=== PATIENT | male | born 1960 ===

== ENCOUNTER 2025-05-09 15:11 | Inpatient (IN) | payer OTHER, SELFPAY ==
[2025-05-09] VITALS (17 sets, daily range): BP systolic 87–112; BP diastolic 54–79; BMI 22.7
[2025-05-09 10:14] LABS: Hematocrit 24.0 % (39.0-52.0); Hemoglobin 8.0 g/dL (13.0-18.0); Mean Corp Hgb Conc. 33.3 g/dL (33.0-37.0); Mean Corpuscular Volume 108.1 fL (80.0-94.0); Nucleated Red Blood Cells % 0 % (-); Red Cell Dist. Width 17.2 % (11.5-14.5)
[2025-05-09 10:18] LABS: ALT (SGPT) 21 U/L (0-50); AST (SGOT) 31 U/L (17-59); Albumin 3.7 g/dl (3.5-5.0); Alkaline Phosphatase 46 U/L (38-126); Blood Urea Nitrogen 22 mg/dl (9-20); Calcium 8.5 mg/dl (8.4-10.2); Carbon Dioxide 28 mmol/L (22-30); Chloride 106 mmol/L (98-107); Estimated Creatinine Clearance 68 ml/min; Glucose 142 mg/dl (70-99); Magnesium 2.0 mg/dl (1.6-2.3); Potassium 3.8 mmol/L (3.5-5.1); Sodium 137 mmol/L (135-145); Total Protein 6.1 g/dl (6.3-8.2); eGFR > 60.00
[2025-05-09 10:45] LABS: Platelet Count 20 10^3/uL (130-400)
[2025-05-09] MEDS: NSS 1000 IV (10:46)
[2025-05-09 11:19] LABS: COVID-19 Antigen Negative (Negative)
[2025-05-09] MEDS: VANCOCIN 530 MG IV (11:19)
[2025-05-09] MEDS: MAXIPIME 2000 MG IV ×2 (11:20→20:01)
--- NOTE | 2025-05-09 11:22 | ED.GENMED ---
History of Present Illness
General
Chief Complaint: Fainting/Passed Out
Time Seen by Provider: 05/09/25 09:58
History of Present Illness
History of Present Illness:
64-year-old male with history of lymphoma presenting to the emergency department for weakness and fever at home. Patient reports for the past 2 days has been having fevers at home. Does note that he has been having a lingering cough for several
months, had previously been on antibiotics. Denies chest pain, abdominal pain, any urinary complaints or any known sick contacts. Reports he got a PET scan 2 days ago, recently finished all treatments, status post bone marrow transplant 2 months
ago. He follows at [facility] [place] with Dr. Castro. Prior to arrival, notes that he got very fatigued, sweating and diaphoretic. Notes temperature this morning, took Tylenol at 4:30 in the morning. Denies additional acute medical complaints
Phy Exam
Physical Exam
Physical Exam:
General: Pale, no clinical signs of dehydration, nontoxic and in no acute distress
HEENT: protecting airway
Neck: appears supple
CV: Normal heart rate, regular rhythm
Resp: No accessory muscle use, no increased work of breathing, lungs clear to auscultation bilaterally
Abd: Soft and non-distended, no tenderness to palpation
Extremities: No deformities, no swelling
Neuro: alert, no focal neurologic deficit
: deferred
Rectal: deferred
Psych: Normal affect
Skin: Intact
Course
Orders/Labs/Results
Orders:
Orders
05/09/25 09:36
Electrocardiogram (*1) Urgent
Reason for Study: Vertigo / Dizzy
CR Chest - 2 Views Urgent
Comment:
Reason For Exam: shortness of breath
05/09/25 09:37
EKG- Treatment ONCE
05/09/25 09:45
Complete Blood Count/With Diff Urgent
Comprehensive Metabolic Panel Urgent
Magnesium Urgent
Pro-BNP [NT-proBNP] Urgent
Procalcitonin Urgent
Comment: ADD ON
05/09/25 10:18
0.9% Sodium Chloride 1000 ml [Nss] 1,000 ml IV BOLUS
05/09/25 10:46
COVID-19 Antigen Urgent
Source: Nasal Swab
Lactic Acid Q4H
Comment: CANCEL 2nd LACTIC ACID IF 1st LACTIC ACID IS LESS THAN 2
Blood Culture Q30M
FATOUMATA Source: Blood/Venous
Specimen Description:
Influenza A+B Rapid Molecular Urgent
FATOUMATA Source: Nasal Swab
Specimen Description:
05/09/25 10:49
Add On- LAB Urgent
Tests Added?: procalcitonin
Cefepime HCl [Maxipime] 2,000 mg IV NOW STA
05/09/25 11:06
Vancomycin [Vancocin] 1,500 mg 0.9% Sodium Chloride 500 ml [Nss] 500 ml IV NOW
05/09/25 11:21
Add On- LAB Urgent
Tests Added?: RSV
Blood Culture Q30M
FATOUMATA Source: Blood/Venous
Specimen Description:
Abnormal Lab Results
05/09/25
09:45
WBC 4.1 L 10^3/uL
(4.8-10.8)
RBC 2.22 L 10^6/uL
(4.70-6.10)
Hgb 8.0 L g/dL
(13.0-18.0)
Hct 24.0 L %
(39.0-52.0)
MCV 108.1 H fL
(80.0-94.0)
MCH 36.0 H pg
(27.0-31.0)
RDW 17.2 H %
(11.5-14.5)
Plt Count 20 L* 10^3/uL
(130-400)
Absolute Lymphs (auto) 0.5 L 10^3/uL
(1.2-3.4)
Absolute Monos (auto) 0.7 H 10^3/uL
(0.1-0.6)
Lymphocytes % 12.3 L %
(20.5-51.1)
Monocytes % 17.8 H %
(1.7-9.3)
BUN 22 H mg/dl
(9-20)
Glucose 142 H mg/dl
(70-99)
Total Protein 6.1 L g/dl
(6.3-8.2)
05/09/25 09:45
05/09/25 09:45
Vital Signs
Initial and Last Documented VS:
Initial Vital Signs
Pulse Resp BP
91 19 87/54
05/09/25 09:36 05/09/25 09:36 05/09/25 09:36
Last Documented Vital Signs
Temp Pulse Resp BP Pulse Ox
98.9 F 89 16 93/63 100
05/09/25 10:54 05/09/25 10:54 05/09/25 10:54 05/09/25 10:54 05/09/25 11:23
MDM/Problems Addressed
MDM/Problems Addressed:
64-year-old male with history of lymphoma status post bone marrow transplant 2 months ago presenting to the emergency department for fever and near syncope. Vital signs on arrival significant for low blood pressure.
On exam, patient is resting comfortably, no acute distress, nontoxic. He is pale in appearance, however awake and alert. In the setting of fever at home, immunocompromise state and low blood pressure, concern for systemic infection. Patient does
have an active cough with respiratory being suspected source of infection. also notes history of transfusions, may have low blood counts contributing to symptoms. Will check CBC, chemistry panel, lactate, cultures. Will also obtain COVID and
flu
11:00 - Patient's family had contacted their oncologist, Dr. Castro. In discussion with oncologist at [place], would prefer the patient be transferred to the bone marrow transplant for at [facility]. Will initiate transfer.
11:35 - Chest x-ray shows left lower lobe pneumonia. Starting broad-spectrum antibiotics and IV fluids. Did discuss with Dr. Smith, accepting physician. Patient accepted for transfer. Remains hemodynamically stable. Pending bed assignment
*Pulse Oximetry
SaO2: 100
Oxygen Mode of Delivery: Room air
Patient hypoxic: no
*Critical Care Note
Total Time (30-74mins, 75-104mins- exclusive of procedures): Not Applicable
ED Attending Note
-
Portions of this chart may have been created with voice recognition software.� Occasional wrong word or��sound alike� substitutions may have occurred due to the inherent limitations of voice recognition software.
Discharge Plan
Departure
Prescriptions:
No Action
levothyroxine 150 mcg Tablet
150 mcg PO DAILY
loperamide 2 mg Tablet
2 mg PO BIDPRN PRN (Reason: dairrhea)
acetaminophen [Tylenol Extra Strength] 500 mg Tablet
1,000 mg PO Q6HPRN PRN (Reason: mild pain)
acyclovir 800 mg Tablet
800 mg PO BID
Referrals:
Arjun Núñez DO [Family Provider, Family Practice]
Interventions
Interventions:
*Risk Screen - Suicide Last Done: 05/09/25 10:04
*General Assessment Last Done: 05/09/25 10:04
*Neglect/Abuse Screening Last Done: 05/09/25 10:04
*ED- Fall Risk Assessment Last Done: 05/09/25 10:04
*ED COVID-19 Vaccine History Last Done: 05/09/25 10:04
ED- Cardiac Assessment Last Done: 05/09/25 10:04
ED- Neurological Assessment Last Done: 05/09/25 10:04
Discharge Date and Time
Print Language: YI
--- NOTE | 2025-05-09 13:57 | W.PN.UPDATE ---
Addendum entered and electronically signed by Herminio Baer MD 05/09/25 22:35:
Patient is TF to [facility] this evening
Dictated� DC summary # [id number]
Original Note:
Update Note
Progress Note Update
HPI
61F Immunocompromised host, HX lymphoma s/p bone marrow tx 2 months ago at [facility], chr Leucopenia, thrombocytopenia seen at ER:
- fever at home with Low BP here
VS
05/09/25
10:04 05/09/25
10:04
Temp 98.5 F
Pulse 86
Resp Rate 21
Blood pressure 88/58 88/58
SaO2 96
Oxygen Mode of Delivery Room air
PE
Gen: looks tired, conversant and appropriate
HEENT: symmetric face expression
Lungs: no acute Resp distress, no labored breathing
ENGINE RESEARCH ENGINEER:awake and alert symmetric movements of all extremities , nl speech and vol
Psych: Interactive and appropriate
Labs
05/09/25 05/09/25
09:45 10:46
WBC 4.1 L
Hgb 8.0 L
Plt Count 20 L*
BUN 22 H
Creatinine 1.0
eGFR > 60.00
New-I-Lsrlnisgazt Pept 296
SARS-CoV-2 Antigen Negative
ASSESSMENT & PLAN
Immunocompromised host with HX lymphoma s/p BMT 2 months ago at [facility]
LLL PNA
Fever at home with Hypotension - but has improved.
HX chronic pancytopenia Leucopenia, thrombocytopenia
- BCx sent
- agree with IV vancomycin and CFP
- LR IVF septic fluid bolus
- Trend CBC
HX chronic pancytopenia Leucopenia, severe thrombocytopenia
- trend CBC
- T & S, Blood consent
HX lymphoma s/p bone marrow tx 2 months ago at [facility]
P oncologist says baseline.
- cont ASSISTANT WAREHOUSE MANAGER Acyclovir
- Oncologist Dr. Castro @ [facility] , accepted by Dr. Smith
He is accepted to the BMT floor @ [facility] but no present bed available and unclear when it will be.
DVT Px: SCD
Full code
IMU
--- NOTE | 2025-05-09 14:11 | HPS.HSE ---
Family Physician
-
Family Physician: Arjun Núñez
Chief Complaint
-
Weakness, fever x 2 days
History of Present Illness
64-year-old male with history of lymphoma being treated at [facility] by . He reports fever of 2 days at home with weakness and a cough for several months. He has been on previous antibiotics. He is status post bone marrow
transplant 2 months ago had recent PET scan 2 days ago. He reports a temperature this morning at 4:30 AM 101.1F for which he took Tylenol. He denies headache, sore throat, rash, chest pain, palpitations, abdominal pain, nausea, vomiting, diarrhea,
urinary symptoms. He has past medical history of lymphoma status post bone marrow transplant 2 months ago, history of lymphoma in 2001 status post chemo only at [place], hypothyroidism.
Medical History
Past Medical History
Past Medical History: Reports Other
Additional Past Medical History:
lymphoma status post bone marrow transplant 2 months ago
history of lymphoma in 2001 status post chemo only at [place]
hypothyroidism.
Past Surgical History: Reports Other (Tonsillectomy as child)
Social History
Tobacco: Non-smoker
Alcohol: None
Drug: None
Personal:
Living: With Family ()
Employment: Retired
Family History
Family History: Other (Mother pancreatic cancer 93, father pancreatic cancer age 70 thought to be due to [place], sister thyroid cancer)
Allergies / Home Medications
Allergies reflects when Allergies were last updated in [address].
Home Medications with original date entered in [address]
Allergy/Medication List:
Allergies
Allergy/AdvReac Type Severity Reaction Status Date / Time
No Known Allergies Allergy Unverified 05/09/25 09:36
Home Medications
acetaminophen 500 mg tablet (Tylenol Extra Strength) 1,000 mg PO Q6HPRN PRN mild pain 05/09/25
acyclovir 800 mg tablet 800 mg PO BID 05/09/25
levothyroxine 150 mcg tablet 150 mcg PO DAILY 05/09/25
loperamide 2 mg tablet 2 mg PO BIDPRN PRN dairrhea 05/09/25
Review of Systems
-
History Source: Patient and Family ( at bedside)
A 12 point ROS was completed and negative except as noted: Yes
Constitutional: Reports Fever and Fatigue; Denies Chills
EENT: Denies Sore Throat or Runny Nose
Respiratory: Denies Cough or Trouble Breathing
Cardiac: Denies Chest Pain, Diaphoresis, Palpitations or Syncope
Abdomen/GI: Denies Abdominal Pain, Nausea, Vomiting, Diarrhea, Constipated, Bloody Stools or Black Stools
: Denies Dysuria, Frequency, Flank Pain, Incontinence, Difficulty Voiding, Urgency or Bleeding
Musculoskeletal: Denies Joint Pain or Edema
Skin: Denies Itching or Rash
Neurological: Reports Weakness (Generalized); Denies Dizzy or Headache
Endocrine: Reports No Symptoms
Hematologic/Lymphatic: Reports No Symptoms
Psych: Reports Calm
Physical Exam
Vital Signs
Vital Signs
Temp Pulse Resp BP Pulse Ox
98.9 F 89 16 93/63 100
05/09/25 10:54 05/09/25 10:54 05/09/25 10:54 05/09/25 10:54 05/09/25 11:23
Physical Exam
General: Comfortable, Conversant and Other (Fatigue); No Pain, Fever or Chills
HEENT: NormoCephalic, Anicteric, Moist mucous membranes, PERRLA, No Ptosis and Other (Pale conjunctiva)
Respiratory: Clear; No Wheezes, Rales or Rhonchi
Cardiac: S1/S2 and Regular Rhythm; No Murmur, Rub, Gallop or Peripheral Edema
Breast: Deferred by me
GI: Soft, Non Tender, Non Distended, Normal Bowel Sounds and No Hepatosplenomegaly
Rectal: Deferred by Provider
Genito-urinary: Deferred by me
Musculoskeletal: No Clubbing, No Cyanosis and No Edema
Skin: Warm and Dry; No Rash
Neuro: AO x 3, No Motor Deficits, Nonfocal/grossly intact, Cranial Nerves Intact and No Sensory Deficits; No Slurred Speech, Facial Droop, Tremors or Sedated
Psych: Calm
Laboratory Results
-
05/09/25 09:45
05/09/25 09:45
Laboratory Results
Lactic Acid Cancelled 05/09/25 14:30
Total Bilirubin 1.1 mg/dl (0.2-1.3) 05/09/25 09:45
AST 31 U/L (17-59) 05/09/25 09:45
ALT 21 U/L (0-50) 05/09/25 09:45
Alkaline Phosphatase 46 U/L (38-126) 05/09/25 09:45
Data Reviewed
-
Diagnostic Radiology: Report Reviewed by me
Lab Data: Labs Reviewed by me
Impression/Plan
-
Impression/plan:
Admit to IMU
#Acute pancytopenia in the setting of Sepsis secondary to left lower lobe pneumonia immunocompromise patient
WBC 4.1, RBC 2.22, Hgb 8, PLT 20
-Type and screen
-Patient is excepted for transfer at [facility] by Dr. Smith however there are no bedshis treating physician is Dr. Castro
- Tylenol as needed
- Follow blood cultures x 2, CBC, CMP
- IV vancomycin IV cefepime
-Continue acyclovir 800 mg p.o. twice daily
- Consult ID
#Lymphoma status post bone marrow transplant 2 Months Ago [facility]
#History of lymphoma status post radiation [address] [place] [address]
Recent PET scan 2 days ago
#Acute hypotension likely secondary to volume depletion
BP 93/63
Patient was given 1 L IV NSS
Will change to IV LR give additional 1 L IV NSS then IV NSS 100 cc/h
#Hypothyroidism
Continue levothyroxine 150 mcg p.o. daily
DVT prophylaxis
SCDs
Full code
[2025-05-09] MEDS: LR 1000 IV ×2 (14:42→17:11)
--- NOTE | 2025-05-09 15:21 | CON.ID ---
Consultation
-
Date/Time Consultation Requested: May 09, 2025 1500
Date/Time Consultation Performed: May 09, 2025 1520
Requesting Provider: Dr. Herminio Baer
Performing Provider: Dr. Peyton Hargrove
Reason for Consultation: Sepsis, pancytopenia, pneumonia, recent bone marrow transplant
Chief Complaint / Past History
Chief Complaint
Fever
History of Present Illness
History obtained from the patient as well as from his at bedside. 64-year-old male with relapsed non-Hodgkin's lymphoma status post recent stem cell transplant March 06, 2025 at [facility] who presented to the ED today due to 2-day history of
fever and weakness. Patient reports he was discharged from [facility] after 1 month hospitalization. He was doing well. He required intermittent packed red blood cells and platelet transfusions for anemia and thrombocytopenia. On Wednesday he had
his PET scan and was told everything looked well. When he came home his noted patient looked fatigued and unwell. He then developed fevers 101-102. Positive chills. He went to urgent care who recommended ED eval. However, pt has appt with
his oncologist today and wanted to wait. Positive headache. Positive rhinorrhea. No pharyngitis. No sinus congestion. He has chronic dry cough for several months. He states no prior pneumonia. Today patient felt dizzy. EMS noted his blood
pressure was low. He was was therefore brought to the ED. Temperature 98.5, BP 87/54 responding to IVF. plt 20. CXR: LLL infiltrate. He has been accepted and waiting for a bed at [facility]. Denies ill contacts. No pets. Denies tick exposure; does
not spend time outdoors much.
Past History
Additional Past Medical History:
Non-Hodgkin Lymphoma diagnosed 2001 status post chemo
Relapsed NHL s/p stem cell transplant Mar 06 2025 at [facility]
Hypothyroidism
Right shoulder arthritis
Left reverse shoulder arthroplasty
Allergy History:
No Known Allergies Allergy (Unverified 05/09/25 09:36)
Medications Reviewed: Yes
Current Antibiotics:
Vancomycin
Cefepime
Social History
Tobacco: Non-Smoker
Alcohol: None
Drug: None
Personal:
Living: With Family
Family History
Family History: Not Pertinent
Review of Systems
Review of Systems
General: Fever, Chills and Change in Appetite
HEENT: Headache; Negative Stiff Neck, Sinus Problems or Pharyngitis
Cardiovascular: Negative Chest Pain
Respiratory: Dyspnea and Cough; Negative Sputum Production
Gasteroenterology: Negative Nausea, Vomiting or Diarrhea
Genital / Urological: Negative Dysuria or Flank Pain
Endocrine: Weakness and Fatigue
Neurological: Dizziness
All systems: All other systems were reviewed and were negative
Vital Signs
Temp Pulse Resp BP Pulse Ox
98.9 F 72 16 107/74 99
05/09/25 10:54 05/09/25 14:55 05/09/25 14:55 05/09/25 14:55 05/09/25 14:55
Physical Exam
Physical Exam
Constitutional: No Acute Distress
Head: Other (No frontal or max or sinus tenderness)
Eyes: No Conjunctival Hemorrhage and Sclera Anicteric
Oral: No Ulcers
Cardiovascular: Regular Rate and S1/S2
Pulmonary: Coarse (Left base)
Gastrointestinal: Soft, Non Tender, Non Distended and Normal Bowel Sounds
Genito-Urinary: Negative CVA Tenderness
Extremities: Negative Edema
Musculoskeletal: Negative Spinal Tenderness
Neurological: AO x 3; Negative Meningeal Signs
Lab / Diagnostic Study Results
05/09/25 09:45
05/09/25 09:45
Abs Immat Gran (auto) 0.0 10^3/uL (0-0.05) 05/09/25 09:45
Absolute Neuts (auto) 2.7 10^3/uL (1.4-6.5) 05/09/25 09:45
Absolute Lymphs (auto) 0.5 10^3/uL (1.2-3.4) L 05/09/25 09:45
Absolute Monos (auto) 0.7 10^3/uL (0.1-0.6) H 05/09/25 09:45
Absolute Basos (auto) 0.0 10^3/uL (0-0.2) 05/09/25 09:45
Immature Gran % 0.5 % (0-0.5) 05/09/25 09:45
Neutrophils % 66.5 % (42.2-75.2) 05/09/25 09:45
Lymphocytes % 12.3 % (20.5-51.1) L 05/09/25 09:45
Monocytes % 17.8 % (1.7-9.3) H 05/09/25 09:45
Eosinophils % 2.2 % (0-6) 05/09/25 09:45
Basophils % 0.7 % (0-2) 05/09/25 09:45
Lactic Acid Cancelled 05/09/25 14:30
Procalcitonin Cancelled 05/09/25 09:45
Microbiology Results
Micro:
05/09/25 10:46 Influenza Types A & B (ANDRESSA) - Final
Nasal Swab Negative for Influenza A & B, NAAT
Negative results must be combined with clinical observations
and patient history.
Nucleic Acid Amplification test (NAAT)performed on the
[employer] platform.
05/09/25 11:21 Blood Culture - Pending
Blood/Venous
05/09/25 10:46 Blood Culture - Pending
Blood/Venous
05/09/25 CXR: Left lower lobe infiltrate which likely represents pneumonia.
Assessment / Plan
# LLL PNA
# Reported fever
# Pancytopenia (not neutropenic) due to recent stem cell transplant.
# Immunocompromised host w/ relapse NHL s/p stem cell transplant 03/06/25, on prophylactic acyclovir.
-COVID neg
- blood cx's pending.
- check urine legionella Ag, urine strep pneumococcal antigen
- Continue cefepime 2g q8
- Add azithromycin 500mg po daily for CAP
- Continue Vancomycin for now pending MRSA screen and blood culture
- Trend temps
- Continue prophylactic acyclovir
- Transfer to [facility] when bed available.
--- NOTE | 2025-05-09 15:47 | EDRN ---
this RN called the receiving IMU nurse Stefania and gave verbal report
--- NOTE | 2025-05-09 16:56 | PHA.VAN.IN ---
Assessment
- Assessment
Renal Function: Unknown baseline
Concomitant Antimicrobials: azithromycin, cefepime, acyclovir (prophylaxis)
AUC Dosing Plan
- Dosing Variables
Dosing Weight (kg): 65.8
Dosing CrCl (ml/min): 68
Vd coefficient (L/kg): 0.7
- Empiric Dosing
Initial / Loading Dose: vanc 1500mg administered @ 1119
Maintenance Regimen: vanc 750mg Q12H
Estimated AUC (mcg*h/mL): 552
Estimated Peak (mcg*h/mL): 31.4
Estimated Trough (mcg/ml): 16.1
Estimated Half Life (H): 11.4
- Monitoring
No levels ordered at this time: consider levels in next few days
MRSA Screen: Ordered per protocol
Pharmacokinetics Vancomycin I
- -
Patient Age: 64
Patient Sex: Male
Vancomycin Day #: 1
Indication: Neutropenic Fever
Requesting Provider: Jess Alexandra
Pertinent Antimicrobial Allergies:
no pertinent antimicrobial allergies
Height / Weight:
Height 5 ft 7 in
Actual Weight 65.771 kg
Pertinent Past Medical History: non-Hodgkin's lymphoma s/p stem cell transplant 03/06/25
- Vital Signs / Lab Results
Temp Pulse Resp BP Pulse Ox
98.9 F 79 20 112/79 95
05/09/25 15:55 05/09/25 15:55 05/09/25 15:55 05/09/25 15:55 05/09/25 15:55
Lab Results - Hematology
05/09/25
09:45
WBC 4.1 L
Lab Results - Chemistry
05/09/25
09:45
BUN 22 H
Creatinine 1.0
Estimated Creat Clear 68
Albumin 3.7
05/09/25 05/09/25
10:46 14:30
Lactic Acid 1.2 Cancelled
Microbiology Results
05/09/25 10:46 Influenza Types A & B (ANDRESSA) - Final
Nasal Swab Negative for Influenza A & B, NAAT
Negative results must be combined with clinical observations
and patient history.
Nucleic Acid Amplification test (NAAT)performed on the
[employer] platform.
[2025-05-09] MEDS: FLUSH (NSS) 1 FLUSH IV (17:11)
[2025-05-09] MEDS: ZITHROMAX 500 MG PO (17:12)
[2025-05-09] MEDS: TYLENOL 650 MG PO ×2 (17:18→22:51)
--- NOTE | 2025-05-09 17:45 | PTCARENOTE ---
Patient arrived from ED on stretcher AAO x3. Assistance x1, steady on his feet. BP's soft 90/50's with MAPS >65. Oral temperature 100.6, tylenol given. ST on monitor. Lungs decreased with crackles bilaterally at bases. IV fluids infusing LR
@100MLS/R. Oriented patient to room. Will monitor.
[2025-05-09] MEDS: STERILE WATER FOR INJECTION 10 ML IV (20:00)
[2025-05-09] MEDS: ZOVIRAX 800 MG PO (20:00)
--- NOTE | 2025-05-09 20:13 | PTCARENOTE ---
Pt remains oriented, pleasant. Denies complaints at this time. at bedside. Pt able to take ordered meds without complication. IVF intact through R FA @ 100mls/hr per MD orders. Call morales within reach. Pt able to make needs known. Report called
to accepting hospital at 20:00. Awaiting transport.
[2025-05-10] VITALS: BP 96/56
--- NOTE | 2025-05-10 00:08 | PTCARENOTE ---
2L O2 placed for SaO2 89% with improvement to 96%. Report given to ALS crew arriving to transfer patient. Pt and belongings assited to stretcher.
== END 2025-05-10 00:21 | disposition short-term general hospital (02) | DRG 194 ==
LOC: IMU 15:11
PROVIDERS: ADMITTING PHYSICIAN Internal Medicine; CONSULT PHYSICIAN Internal Medicine Infectious Disease; EMERGENCY PHYSICIAN Student in an Organized Health Care Education/Training Program; FAMILY PHYSICIAN Family Medicine
DX: J18.9 Pneumonia, unspecified organism (principal); D61.818 Other pancytopenia; Z11.52 Encounter for screening for COVID-19; E03.9 Hypothyroidism, unspecified
CPT/HCPCS: 71046; 80053; 83605; 83735; 83880; 85025; 87040; 87502; 87811; 93005; 96365; 96366; 96375; 99285